=== PATIENT | female | born 1950 | race American Indian/Alaskan Native ===

== ENCOUNTER 2016-08-14 20:01 | Observation (INO) | payer BC, MEDICARE ==
[2016-08-14 20:01] VITALS: BMI 51.0
[2016-08-14] MEDS ORDERED: Sodium Chloride 0.9% 1,000 ML IV ONE (20:24)
--- NOTE | 2016-08-14 20:25 | C.PDOC ---
History Of Present Illness A 65 y/o female c/o left sided chest pain that radiated to the left upper extremity for 1 week. Pt notes that she feels better straightening her left shoulder. Pt reports Hx of injuring his lower back after a mechanical fall that occurred a few weeks prior and c/o lower back pain. Pt denies fever, chills, nausea, vomiting, SOB, palpitations, light headedness, or any other complaints. Time Seen by Provider: 08/14/16 20:18 Chief Complaint (Nursing): Chest Pain History Per: Patient History/Exam Limitations: no limitations Onset/Duration Of Symptoms: Days Current Symptoms Are (Timing): Still Present Severity: Mild Recent travel outside of the [place]: No Additional History Per: Patient Past Medical History Reviewed: Historical Data, Nursing Documentation, Vital Signs Vital Signs: Last Vital Signs Temp 99.2 F 08/14/16 20:03 Pulse 64 08/14/16 21:54 Resp 17 08/14/16 21:54 BP 162/67 H 08/14/16 21:54 Pulse Ox 95 08/14/16 22:20 - Medical History PMH: Arthritis, CAD, Depression, Diabetes, HTN Family History: States: Unknown Family Hx - Social History Hx Tobacco Use: No Hx Alcohol Use: No Hx Substance Use: No - Immunization History Hx Tetanus Toxoid Vaccination: No Hx Influenza Vaccination: No Hx Pneumococcal Vaccination: No Review Of Systems Except As Marked, All Systems Reviewed And Found Negative. Constitutional: Negative for: Fever, Chills Cardiovascular: Positive for: Chest Pain. Negative for: Light Headedness Respiratory: Negative for: Shortness of Breath Gastrointestinal: Negative for: Nausea, Vomiting Musculoskeletal: Positive for: Shoulder Pain (left, radiation), Back Pain (lower ) Physical Exam - Physical Exam Appears: Non-toxic, No Acute Distress Skin: Warm, Dry Head: Atraumatic, Normacephalic Eye(s): bilateral: Normal Inspection Neck: Supple Chest: No Deformity, Tenderness (Left anterior lateral chest wall) Cardiovascular: Rhythm Regular, No Murmur Respiratory: Normal Breath Sounds, No Accessory Muscle Use, No Rales, No Rhonchi , No Wheezing Gastrointestinal/Abdominal: Soft, No Tenderness Back: No CVA Tenderness, Vertebral Tenderness (Mild lumbar sacral tenderness), No Decreased ROM Extremity: Normal ROM, No Pedal Edema, No Deformity, No Swelling Pulses: Left Dorsalis Pedis: Normal, Right Dorsalis Pedis: Normal Neurological/Psych: Oriented x3, Normal Speech, Normal Motor, Normal Sensation, Other (No focal deficit) Gait: Steady ED Course And Treatment - Laboratory Results Result Diagrams: 08/14/16 20:46 08/14/16 21:15 ECG: Interpreted By Me, Viewed By Me ECG Rhythm: Sinus Rhythm ECG Interpretation: No Acute Changes Interpretation Of ECG: NSR, pssible LAE, borderlione tracings Rate From EC O2 Sat by Pulse Oximetry: 95 (RA) Pulse Ox Interpretation: Normal Medical Decision Making Medical Decision Making: Impression: 65 y/o female c/o left sided chest wall pain for a week plans: -EKG -Blood labs -CXR -IV fluids -Reassess Disposition Discussed With DrBeltran: Lei Ceja Doctor Will See Patient In The: Hospital Counseled Patient/Family Regarding: Diagnosis - Disposition Disposition: HOSPITALIZED Disposition Time: 22:16 Condition: STABLE - POA Present On Arrival: None - Clinical Impression Clinical Impression: Diabetes mellitus, Chest pain, Hypertension - Scribe Statement The provider has reviewed the documentation as recorded by the Scribe Deisy garces All medical record entries made by the Scribe were at my direction and personally dictated by me. I have reviewed the chart and agree that the record accurately reflects my personal performance of the history, physical exam, medical decision making, and the department course for this patient. I have also personally directed, reviewed, and agree with the discharge instructions and disposition.
[2016-08-14] MEDS ORDERED: Sodium Chloride 0.9% 1,000 ML ONE (20:43)
[2016-08-14 20:54] LABS: BASO # 0.1 K/uL (0.0-0.2); BASO % 0.8 % (0.0-2.0); EOS # 0.2 K/uL (0.0-0.7); EOS % 2.2 % (0.0-4.0); HEMATOCRIT 42.6 % (34.0-47.0); LYMPH # 2.7 K/uL (1.0-4.3); LYMPH % 34.8 % (20.0-40.0); MEAN CELL VOLUME 86.1 fL (81.0-99.0); MEAN CORPUSCULAR HGB CONC 32.6 g/dL (33.0-37.0); MEAN PLATELET VOLUME 9.3 fL (7.2-11.7); MONO # 0.7 K/uL (0.0-0.8); MONO % 9.3 % (0.0-10.0); NRBC % 0.1 % (0.0-2.0); RED CELL DISTRIBUTION WIDTH 14.6 % (11.5-14.5); WHITE BLOOD COUNT 7.8 K/uL (4.8-10.8)
[2016-08-14] MEDS ORDERED: Naproxen 550 mg Tab PO STA (21:15)
[2016-08-14] MEDS ORDERED: Naproxen 550 mg Tab PO ONE ×2 (21:18→21:40)
[2016-08-14 21:26] LABS: CHLORIDE 105 mmol/L (98-107)
[2016-08-14 21:27] LABS: POTASSIUM 3.9 mmol/L (3.6-5.2); SODIUM 137 mmol/L (132-148)
[2016-08-14 21:30] LABS: ALKALINE PHOSPHATASE 95 U/L (38-126); ALT/SGPT 21 U/L (9-52); AST/SGOT 19 U/L (14-36); BILIRUBIN,TOTAL 0.6 mg/dL (0.2-1.3); BLOOD UREA NITROGEN 12 mg/dL (7-17); CARBON DIOXIDE 23 mmol/L (22-30); GFR AFRICAN-AMERICAN > 60; GLUCOSE,RANDOM 267 mg/dL (65-105); TOTAL PROTEIN 6.7 g/dL (6.3-8.3)
[2016-08-14] MEDS ORDERED: Sodium Chloride 0.9% 500 ML IV ONE ×2 (21:36→21:40)
[2016-08-14] MEDS ORDERED: (Novolin R) Insulin Human Regular 100 units/ml vial SC ONE (21:37)
[2016-08-14] MEDS ORDERED: (Novolin R) Insulin Human Regular 100 units/ml vial ONE (21:46)
[2016-08-14 22:00] LABS: RBC URINE 3 /hpf (0-3); URINE BACTERIA FEW (<OCC); URINE BILIRUBIN NEGATIVE (NEGATIVE); URINE BLOOD NEGATIVE (NEGATIVE); URINE COLOR Yellow (YELLOW); URINE GLUCOSE (UA) 3+ mg/dL (Normal); URINE KETONE NEGATIVE (NEGATIVE); URINE LEUKOCYTE ESTERASE NEG Leu/uL (Negative); URINE PROTEIN NEGATIVE (NEGATIVE); WBC URINE 1 /hpf (0-5)
[2016-08-14 22:21] LABS: INR 1.1
--- NOTE | 2016-08-14 22:21 | CP.PCM.HP ---
Addendum entered and electronically signed by Montse Coates 08/15/16 00:16: BP was 197/78--> 209/82 --> cozaar and HCTZ were given as patient did not take those meds at home today --> repeat BP was 206/82 --> stat IV hydralazine was given. Will f/u repeat BP Original Note: <Montse Coates - Last Filed: 08/14/16 23:20> History of Present Illness - History of Present Illness History of Present Illness: CC: arm pain, chest pain, and back pain for 1 week HPI: 65 year old female PMHx of HTN, DM2, spinal stenosis, and morbid obesity presents with complaints of left arm pain, chest pain, and back pain for 1 week. Patient reports the left arm pain started first and was a constant 8/10 that felt like a tingling sensation like she had "poor circulation." She reported that if she lay her arm out straight the tingling would stop but if she folded her arm she would feel it again. The patient's chest pain started the next day after her arm pain and she reported it was on the left side of her chest and would feel like a dull thud and pressure like. She reported it was across her entire chest but mostly on the left side. She rated the pain 6/10 and denied any alleviating/exacerbating factors. Patient stated the pain began when she was sleeping and she said that when she pressed down on her chest it would hurt. Patient also reported some back pain that felt like she was having a cold. She said the last time she had bronchitis she had similar back pain. It was dull in nature and would be at the middle of her back and then radiate up and down her entire back. Patient reported the pain was a 6/10. She also showed me reports from an MRI i n2014 that showed "L3-L4, L4-L5, L5-S1 bulging annuli with annulus tear; foraminal narrowing at L5-S1 and facet hypertrophy. She denied any recent trauma. Patient's last travel was to [place] in June and she denied any recent sick contacts. Patient admits to weakness, headache, dizziness, lightheadness, dysphagia, sore tongue, chest pain, dry cough, post nasal drip, nausea, urinary frequency, pedal edema, pain in legs b/l, back pain , perirectal pruritus, external hemorrhoids. She deneis fever, chills, diaphoresis, change in vision/hearing, sore throat, palpitations, SOB, abd pain , vomiting, hematemesis, bowel complaints, dysuria, rash, easy bruising, easy bleeding. Patient uses a cane to walk. PMD: Dr. 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] PreviousHospitalization: at in February 2016 for abdominal pain ROS: admits to weakness, headache, dizziness, lightheadness, dysphagia, sore tongue, chest pain, dry cough, post nasal drip, nausea, urinary frequency, pedal edema, pain in legs b/l, back pain, perirectal pruritus, external hemorrhoid Deneis fever, chills, diaphoresis, change in vision/hearing, sore throat, palpitations, SOB, abd pain, vomiting, hematemesis, bowel complaints, dysuria, rash, easy bruising, easy bleeding ER Course: EKG showed no acute ST elevations, first ALEXUS was negative, Labs ordered, CXR ordered, IV fluids Present on Admission - Present on Admission Any Indicators Present on Admission: No Review of Systems - Constitutional Constitutional: As Per HPI, Headache. absent: Chills, Fever, Weight Gain, Weight Loss - EENT Eyes: As Per HPI. absent: Change in Vision Ears: As Per HPI. absent: Tinnitus Nose/Mouth/Throat: As Per HPI, Post Nasal Drip, Tongue Swelling. absent: Sore Throat - Cardiovascular Cardiovascular: As Per HPI, Chest Pain, Dyspnea on Exertion, Pedal Edema. absent: Dyspnea, Palpitations - Respiratory Respiratory: As Per HPI, Cough (nonproductive), Dyspnea on Exertion. absent: Dyspnea, Wheezing, Chest Congestion - Gastrointestinal Gastrointestinal: As Per HPI, Nausea. absent: Abdominal Pain, Constipation, Diarrhea, Vomiting - Genitourinary Genitourinary: As Per HPI, Urinary Frequency. absent: Dysuria, Hematuria, Pyuria, Nocturia - Musculoskeletal Musculoskeletal: As Per HPI, Back Pain, Tingling (left arm). absent: Myalgias, Numbness - Integumentary Integumentary: As Per HPI, Pruritus (perirectal), Rash (perirectal) - Neurological Neurological: As Per HPI, Dizziness, Headaches, Tingling (left arm), Weakness. absent: Abnormal Movements, Numbness, Memory Loss - Psychiatric Psychiatric: As Per HPI. absent: Anxiety - Endocrine Endocrine: As Per HPI, Polyuria. absent: Palpitations, Polydipsia, Polyphagia - Hematologic/Lymphatic Hematologic: As Per HPI. absent: Easy Bleeding, Easy Bruising, Lymphadenopathy Past Patient History - Past Social History Smoking Status: Never Smoked - CARDIAC Hx Hypertension: Yes - ENDOCRINE/METABOLIC Hx Diabetes Mellitus Type 2: Yes - MUSCULOSKELETAL/RHEUMATOLOGICAL Hx Arthritis: Yes - PSYCHIATRIC Hx Depression: Yes Hx Substance Use: No - ANESTHESIA Hx Anesthesia: No Hx Anesthesia Reactions: No Hx Malignant Hyperthermia: No Meds Allergies/Adverse Reactions: Allergies Allergy/AdvReac Type Severity Reaction Status Date / Time ampicillin Allergy Verified 08/14/16 20:19 gentian mackenzie AdvReac Verified 08/14/16 20:19 proflavine AdvReac Verified 08/14/16 20:19 BRILLIANT GREEN AdvReac Uncoded 02/16/16 17:30 [FROM TRIPLE DYE] Physical Exam - Constitutional Appears: Non-toxic, Chronically Ill (morbidly obese) - Head Exam Head Exam: ATRAUMATIC, NORMAL INSPECTION, NORMOCEPHALIC - Eye Exam Eye Exam: EOMI, Normal appearance, Scleral icterus. absent: Conjunctival injection, PERRL Pupil Exam: NORMAL ACCOMODATION - ENT Exam ENT Exam: Mucous Membranes Moist - Neck Exam Neck exam: Positive for: Full Rom, Thyromegaly. Negative for: Lymphadenopathy, Tenderness - Respiratory Exam Respiratory Exam: Decreased Breath Sounds (secondary to body habitus), NORMAL BREATHING PATTERN. absent: Accessory Muscle Use, Rales, Rhonchi, Wheezes, Respiratory Distress - Cardiovascular Exam Cardiovascular Exam: REGULAR RHYTHM, RRR, +S1, +S2. absent: Systolic Murmur - GI/Abdominal Exam GI & Abdominal Exam: Distended (secondary to body habitus), Normal Bowel Sounds , Soft. absent: Firm, Guarding, Rigid, Tenderness - Rectal Exam Rectal Exam: Deferred - Exam External exam: NORMAL EXTERNAL EXAM. absent: Ecchymosis, Erythema, Lacerations , Lesions, Swelling - Extremities Exam Extremities exam: Positive for: normal capillary refill, normal inspection, pedal edema (nonpitting), pedal pulses present - Back Exam Back exam: NORMAL INSPECTION. absent: paraspinal tenderness, rash noted, tenderness, vertebral tenderness - Neurological Exam Neurological exam: Alert, Oriented x3 - Psychiatric Exam Psychiatric exam: Normal Affect, Normal Mood - Skin Skin Exam: Dry, Intact, Normal Color, Warm Results - Vital Signs Recent Vital Signs: Last Vital Signs Temp 99.2 F 08/14/16 20:03 Pulse 64 08/14/16 21:54 Resp 17 08/14/16 21:54 BP 162/67 H 08/14/16 21:54 Pulse Ox 95 08/14/16 22:19 - Labs Result Diagrams: 08/14/16 20:46 08/14/16 21:15 Labs: Laboratory Results - last 24 hr 08/14/16 08/14/16 08/14/16 20:26 20:46 21:15 WBC 7.8 RBC 4.95 Hgb 13.9 Hct 42.6 MCV 86.1 MCH 28.0 MCHC 32.6 L RDW 14.6 H Plt Count 243 MPV 9.3 Neut % (Auto) 52.9 Lymph % (Auto) 34.8 [place] % (Auto) 9.3 Eos % (Auto) 2.2 Baso % (Auto) 0.8 Neut # 4.2 Lymph # 2.7 [place] # 0.7 Eos # 0.2 Baso # 0.1 Sodium 137 Potassium 3.9 Chloride 105 Carbon Dioxide 23 Anion Gap 13 BUN 12 Creatinine 0.8 Est GFR ( Amer) > 60 Est GFR (Non-Af Amer) > 60 POC Glucose (mg/dL) 312 H Random Glucose 267 H Calcium 9.0 Total Bilirubin 0.6 AST 19 ALT 21 Alkaline Phosphatase 95 Troponin I < 0.0120 Total Protein 6.7 Albumin 3.4 L Globulin 3.4 Albumin/Globulin Ratio 1.0 Urine Color Urine Clarity Urine pH Ur Specific [place] Urine Protein Urine Glucose (UA) Urine Ketones Urine Blood Urine Nitrate Urine Bilirubin Urine Urobilinogen Ur Leukocyte Esterase Urine WBC (Auto) Urine RBC (Auto) Ur Squamous Epith Cells Urine Bacteria 08/14/16 21:53 WBC RBC Hgb Hct MCV MCH MCHC RDW Plt Count MPV Neut % (Auto) Lymph % (Auto) [place] % (Auto) Eos % (Auto) Baso % (Auto) Neut # Lymph # [place] # Eos # Baso # Sodium Potassium Chloride Carbon Dioxide Anion Gap BUN Creatinine Est GFR ( Amer) Est GFR (Non-Af Amer) POC Glucose (mg/dL) Random Glucose Calcium Total Bilirubin AST ALT Alkaline Phosphatase Troponin I Total Protein Albumin Globulin Albumin/Globulin Ratio Urine Color Yellow Urine Clarity Hazy Urine pH 5.0 Ur Specific [place] 1.022 Urine Protein Negative Urine Glucose (UA) 3+ H Urine Ketones Negative Urine Blood Negative Urine Nitrate Negative Urine Bilirubin Negative Urine Urobilinogen 4.0 H Ur Leukocyte Esterase Neg Urine WBC (Auto) 1 Urine RBC (Auto) 3 Ur Squamous Epith Cells 9 H Urine Bacteria Few H Assessment & Plan - Assessment and Plan (Free Text) Assessment: 65 year old female PMHx of HTN, DM2, spinal stenosis, and morbid obesity presents with complaints of left arm pain, chest pain, and back pain for 1 week Plan: Chest pain - r/o ACS -First ALEXUS negative and EKG was NSR with no acute ST elevations -f/u ALEXUS x 2 and EKG x 2 -ASA 81mg po daily -Crestor 10mg po daily -f/u AM labs -f/u Echo -HEART score of 3 [low 0.9-1.7% risk of adverse cardiac event. Risk of MACE ( Major Adverse Cardiac Events) is 0.9-1.7%] -Cardiology consult: Dr Sheppard Morbid Obesity -BMI 50.9 -Nutrition/Exhaust Machine Operator consult -Heart healthy diet with moderate consistent carb -Recommend outpatient diet control and exercise Perirectal pruritus -Topical ointment BID Hx of HTN -ASA 81mg po daily -Crestor 10mg po hs -Diltiazem 60mg po bid -HCTZ 12.5mg po daily -Cozaar 100mg po daily -Lopressor 25mg po bid -Lovaza 1gm po bid -f/u thyroid studies, lipid panel Hx of DM2 -f/u HgbA1c -RISS medium -Accucheck Hx of spinal stenosis -f/u lumbar x-ray PPX -Pepcid 20mg po bid -Heparin 5000u sc q8 -SCDs -Heart healthy moderate consistent carb diet -PT/OT -Exhaust Machine Operator Plan discussed with Dr. Brenna Coates PGY1 <Lei Ceja - Last Filed: 08/15/16 06:21> Results - Vital Signs Recent Vital Signs: Last Vital Signs Temp 98.6 F 08/15/16 01:49 Pulse 70 08/15/16 01:49 Resp 20 08/15/16 01:49 BP 175/85 H 08/15/16 01:49 Pulse Ox 96 08/15/16 01:49 - Labs Result Diagrams: 08/14/16 20:46 08/14/16 21:15 Labs: Laboratory Results - last 24 hr 08/15/16 01:55 Total Creatine Kinase 58 CK-MB (Mass) 0.46 Troponin I, Quant < 0.0120 Assessment & Plan - Date & Time Date: 08/15/16 (I have seen and examined the patient. I agree with the findings and plan of care as documented by Dr. Coates. Patient with chest pain. Also with morbid obesity, diabetes, and hypertension. ROMIx3 with EKG. Aspirin and Statin. Continue home meds. Consult to Cardio. Consult to nutrition. NISS and accuchecks. 2D Echo. Monitor for acute changes.) Time: 06:19 Attending/Attestation - Attestation I have personally seen and examined this patient.: Yes I have fully participated in the care of the patient.: Yes I have reviewed all pertinent clinical information: Yes
[2016-08-15] MEDS ORDERED: (Novolin N) Insulin Human Isophane (NPH) 100 u/ml 10 ml vial SC SCH (07:30)
[2016-08-15 07:38] VITALS: O2SAT 95
[2016-08-15 08:00] LABS: BASO # 0.1 K/uL (0.0-0.2); BASO % 0.9 % (0.0-2.0); EOS # 0.2 K/uL (0.0-0.7); EOS % 2.3 % (0.0-4.0); HEMATOCRIT 41.5 % (34.0-47.0); LYMPH # 2.4 K/uL (1.0-4.3); LYMPH % 33.8 % (20.0-40.0); MEAN CELL VOLUME 85.9 fL (81.0-99.0); MEAN CORPUSCULAR HEMOGLOBIN 28.5 pg (27.0-31.0); MEAN CORPUSCULAR HGB CONC 33.2 g/dL (33.0-37.0); MEAN PLATELET VOLUME 9.9 fL (7.2-11.7); MONO # 0.4 K/uL (0.0-0.8); MONO % 5.7 % (0.0-10.0); NRBC % 0.1 % (0.0-2.0); RED CELL DISTRIBUTION WIDTH 14.5 % (11.5-14.5); WHITE BLOOD COUNT 7.1 K/uL (4.8-10.8)
[2016-08-15 08:07] LABS: CHLORIDE 102 mmol/L (98-107); POTASSIUM 3.6 mmol/L (3.6-5.2); SODIUM 137 mmol/L (132-148)
[2016-08-15 08:09] LABS: AST/SGOT 19 U/L (14-36); BILIRUBIN,TOTAL 0.8 mg/dL (0.2-1.3); CARBON DIOXIDE 23 mmol/L (22-30); CHOLESTEROL 166 mg/dL (0-199); GFR AFRICAN-AMERICAN > 60; TOTAL PROTEIN 6.9 g/dL (6.3-8.3)
[2016-08-15 08:10] LABS: ALKALINE PHOSPHATASE 108 U/L (38-126); ALT/SGPT 21 U/L (9-52); BLOOD UREA NITROGEN 13 mg/dL (7-17); CALCIUM 9.5 mg/dl (8.6-10.4); GLUCOSE,RANDOM 321 mg/dL (65-105); MAGNESIUM 1.6 mg/dL (1.6-2.3); PHOSPHOROUS 3.5 mg/dL (2.5-4.5)
[2016-08-15 08:49] LABS: THYROID STIMULATING HORMONE 2.91 mIU/L (0.46-4.68)
--- NOTE | 2016-08-15 09:04 | RAD ---
PROCEDURE: CHEST RADIOGRAPH, 1 VIEW HISTORY: chest pain COMPARISON: None available. FINDINGS: LUNGS: Mild venous congestion. PLEURA: No pneumothorax or pleural fluid seen. CARDIOVASCULAR: Cardiomegaly. OSSEOUS STRUCTURES: Question deformity of the left proximal humerus which is only partially imaged. Correlation with humerus x-ray may be helpful indicated. VISUALIZED UPPER ABDOMEN: Normal. OTHER FINDINGS: None. IMPRESSION: Mild venous congestion.
--- NOTE | 2016-08-15 10:08 | CP.PCM.PN ---
Subjective - Date & Time of Evaluation Date of Evaluation: 08/15/16 Time of Evaluation: 09:59 - Subjective Subjective: PGY-[address] Garcia Pt seen and examined at bedside. No acute events overnight. Pt denies reoccurrence of chest pain that led to admission. She states she sometimes gets numbness in her left arms, most commonly while sleeping with her arm flexed. Pt also complaining of pruritic "rash" in skin folds, and was given topical antifungal medication. She denies chest pain, shortness of breath, abdominal pain, N/v/d/c. Objective - Vital Signs/Intake and Output Vital Signs (last 24 hours): Temp Pulse Resp BP Pulse Ox 98.0 F 79 20 131/73 95 08/15/16 07:35 08/15/16 07:35 08/15/16 07:35 08/15/16 07:35 08/15/16 07:35 - Medications Medications: Current Medications Acetaminophen (Tylenol 325mg Tab) 650 mg PO Q6 PRN PRN Reason: Headache Last Admin: 08/15/16 06:04 Dose: 650 mg Aspirin (Aspirin Chewable) 81 mg PO DAILY [facility] Diltiazem HCl (Cardizem Sr) 60 mg PO BID [facility] Famotidine (Pepcid) 20 mg PO BID [facility] Heparin Sodium (Porcine) (Heparin) 5,000 units SC Q8 [facility] Last Admin: 08/15/16 06:09 Dose: 5,000 units Hydralazine HCl (Apresoline) 10 mg IVP Q6H PRN PRN Reason: Systolic Blood Pressure Last Admin: 08/15/16 01:53 Dose: 10 mg Hydrochlorothiazide (Microzide) 12.5 mg PO DAILY [facility] Last Admin: 08/15/16 00:00 Dose: 12.5 mg Insulin Human NPH (Novolin N) 0 unit SC ACHS [facility] PRN Reason: Protocol Last Admin: 08/15/16 08:49 Dose: 6 unit Losartan Potassium (Cozaar) 100 mg PO DAILY [facility] Last Admin: 08/14/16 23:35 Dose: 100 mg Metoprolol Tartrate (Lopressor) 25 mg PO BID [facility] Multi-Ingredient Ointment (Prep-Hem) 0 ea TOP BID [facility] [id number] Ethyl Esters (Lovaza) 1 gm PO BID [facility] Rosuvastatin Calcium (Crestor) 10 mg PO HS EVE - Labs Labs: 08/15/16 07:44 08/15/16 07:44 PT 12.6 SECONDS (9.7-12.2) H 08/14/16 22:10 INR 1.1 08/14/16 22:10 APTT 27 SECONDS (21-34) 08/15/16 07:44 - Constitutional Appears: Non-toxic, No Acute Distress, Chronically Ill, Other (large body habitus noted) - Head Exam Head Exam: ATRAUMATIC, NORMOCEPHALIC - Eye Exam Eye Exam: EOMI, Normal appearance. absent: Scleral icterus - ENT Exam ENT Exam: Mucous Membranes Moist - Neck Exam Neck Exam: Full ROM - Respiratory Exam Respiratory Exam: Decreased Breath Sounds (body habitus), NORMAL BREATHING PATTERN - Cardiovascular Exam Cardiovascular Exam: REGULAR RHYTHM, +S1, +S2 - GI/Abdominal Exam GI & Abdominal Exam: Soft, Normal Bowel Sounds. absent: Tenderness - Extremities Exam Extremities Exam: Normal Inspection, Pedal Edema. absent: Tenderness - Neurological Exam Neurological Exam: Alert, Awake, Oriented x3 - Skin Skin Exam: Dry, Normal Color, Warm Assessment and Plan - Assessment and Plan (Free Text) Plan: Chest pain - r/o ACS Admit to tele -ALEXUS negative x 3; EKG: NSR with no acute ST elevations -ASA 81mg po daily -Crestor 10mg po daily -Echo (02/18): LV fxn normal. EF 60%. Mild tricupsid, pulmonic valve regurgitation (see full report) -HEART score of 3 [low 0.9-1.7% risk of adverse cardiac event. Risk of MACE ( Major Adverse Cardiac Events) is 0.9-1.7%] -Cardiology consult: Dr Sheppard - recommends stress test/ECHO as outpatient Left Upper Extremity Paresthesia Positional - flexion of UE R/O radiculopathy vs Vascular - f/u C-spine XR - f/u arterial doppler UE Morbid Obesity -BMI 50.9 -Nutrition/Clinical Education Coordinator consult -Heart healthy diet with moderate consistent carb -Recommend outpatient diet control and exercise Intertrigenous/Pannicular Rash (Yeast Infection) Keiko in skin folds for "10 months" Clotrimazole 1%, topically BID Perirectal pruritus -Topical ointment BID Hx of HTN Elevated since presentation -Diltiazem 60mg po bid -HCTZ increased 25mg po daily -Cozaar 100mg po daily -Lopressor 25mg po bid -Lovaza 1gm po bid -thyroid studies, lipid panel: WNL Hx of DM2 -HgbA1c: 12.4, uncontrolled; pt has not had meds for two months -RISS medium -Accucheck Continue KEYANA, BB, Statin Hx of lumbar spinal stenosis Pt reports -Lumbar x-ray (08/15/16): No acute fracture. Mild DDD worse at L4-5, L5-S1 (see full report) PPX -Pepcid 20mg po bid -Heparin 5000u sc q8 -SCDs -Heart healthy moderate consistent carb diet -PT/OT -Clinical Education Coordinator Plan discussed with Dr. Radha Alfred PGY1
--- NOTE | 2016-08-15 10:35 | RAD ---
HISTORY: left sided chest pain COMPARISON: No prior. TECHNIQUE: Chest PA and lateral FINDINGS: LUNGS: Mild venous congestion. Right hilar prominence. PLEURA: No significant pleural effusion identified. No pneumothorax apparent. CARDIOVASCULAR: Normal. OSSEOUS STRUCTURES: No significant abnormalities. VISUALIZED UPPER ABDOMEN: Normal. OTHER FINDINGS: None. IMPRESSION: Mild venous congestion. Right hilar prominence.
[2016-08-15] MEDS: Omega-3-Acid Ethyl Esters 1 GM Cap PO SCH ×2 (10:58→17:26)
[2016-08-15] MEDS: diltiaZEM 60 mg ER Cap PO SCH ×2 (10:58→17:26)
[2016-08-15] MEDS: Hemorrohoidal Ointment (2 oz) TOP SCH ×2 (11:02→17:29)
--- NOTE | 2016-08-15 12:52 | CP.PCM.CON ---
History of Present Illness - History of Present Illness History of Present Illness: 65-year-old lady with history of obesity, type 2 diabetes, hypertension and dyslipidemia, was admitted with 2 days history of left arm pain and numbness followed by chest pain. The chest pain is reproducible tenderness no EKG changes and the cardiac enzymes are so far negative. The pain had improved no myocardial infarction and due to the reproducibility of the pain it's unlikely dissection of the aorta or pulmonary embolus. She would need an echocardiogram and stress test that can be done as outpatient. Review of Systems - Review of Systems Systems not reviewed;Unavailable: Acuity of Condition - Constitutional Constitutional: absent: Anorexia, Weakness - EENT Eyes: absent: Discharge Ears: absent: Decreased Hearing, Dizziness Nose/Mouth/Throat: absent: Epistaxis - Cardiovascular Cardiovascular: Chest Pain, Chest Pain at Rest. absent: Acrocyanosis, Diaphoresis, Palpitations, Syncope - Respiratory Respiratory: absent: Cough, Dyspnea, Hemoptysis - Gastrointestinal Gastrointestinal: absent: Abdominal Pain, Diarrhea, Hematochezia, Vomiting - Genitourinary Genitourinary: absent: Change in Urinary Stream Past Patient History - Past Medical History & Family History Past Medical History?: Yes - Past Social History Smoking Status: Former Smoker - CARDIAC Hx Cardiac Disorders: Yes Hx Hypertension: Yes - PULMONARY Hx Respiratory Disorders: No - NEUROLOGICAL Hx Neurological Disorder: No - HEENT Hx HEENT Problems: No - RENAL Hx Chronic Kidney Disease: No - ENDOCRINE/METABOLIC Hx Endocrine Disorders: Yes Hx Diabetes Mellitus Type 2: Yes - HEMATOLOGICAL/ONCOLOGICAL Hx Blood Disorders: No - INTEGUMENTARY Hx Dermatological Problems: No - MUSCULOSKELETAL/RHEUMATOLOGICAL Hx Musculoskeletal Disorders: Yes Hx Arthritis: Yes Hx Falls: No - GASTROINTESTINAL Hx Gastrointestinal Disorders: No - GENITOURINARY/GYNECOLOGICAL Hx Genitourinary Disorders: No - PSYCHIATRIC Hx Psychophysiologic Disorder: Yes Hx Depression: Yes Hx Substance Use: No - SURGICAL HISTORY Hx Surgeries: No - ANESTHESIA Hx Anesthesia: No Hx Anesthesia Reactions: No Hx Malignant Hyperthermia: No Meds Allergies/Adverse Reactions: Allergies Allergy/AdvReac Type Severity Reaction Status Date / Time ampicillin Allergy Verified 08/14/16 20:19 gentian thea AdvReac Verified 08/14/16 20:19 proflavine AdvReac Verified 08/14/16 20:19 BRILLIANT GREEN AdvReac Uncoded 02/16/16 17:30 [FROM TRIPLE DYE] - Medications Medications: Current Medications Acetaminophen (Tylenol 325mg Tab) 650 mg PO Q6 PRN PRN Reason: Headache Last Admin: 08/15/16 06:04 Dose: 650 mg Aspirin (Aspirin Chewable) 81 mg PO DAILY [facility] Last Admin: 08/15/16 10:58 Dose: 81 mg Clotrimazole (Lotrimin 1%) 0 gm TOP BID [facility] Diltiazem HCl (Cardizem Sr) 60 mg PO BID [facility] Last Admin: 08/15/16 10:58 Dose: 60 mg Famotidine (Pepcid) 20 mg PO BID [facility] Last Admin: 08/15/16 10:58 Dose: 20 mg Heparin Sodium (Porcine) (Heparin) 5,000 units SC Q8 [facility] Last Admin: 08/15/16 06:09 Dose: 5,000 units Hydralazine HCl (Apresoline) 10 mg IVP Q6H PRN PRN Reason: Systolic Blood Pressure Last Admin: 08/15/16 01:53 Dose: 10 mg Hydrochlorothiazide (Microzide) 12.5 mg PO DAILY [facility] Last Admin: 08/15/16 00:00 Dose: 12.5 mg Insulin Human NPH (Novolin N) 0 unit SC ACHS [facility] PRN Reason: Protocol Losartan Potassium (Cozaar) 100 mg PO DAILY [facility] Last Admin: 08/14/16 23:35 Dose: 100 mg Metoprolol Tartrate (Lopressor) 25 mg PO BID [facility] Last Admin: 08/15/16 11:00 Dose: 25 mg Multi-Ingredient Ointment (Prep-Hem) 0 ea TOP BID [facility] Last Admin: 08/15/16 11:02 Dose: 1 appl Ukzns-7-Onse Ethyl Esters (Lovaza) 1 gm PO BID [facility] Last Admin: 08/15/16 10:58 Dose: 1 gm Rosuvastatin Calcium (Crestor) 10 mg PO [facility] Physical Exam - Constitutional Appears: Non-toxic - Head Exam Head Exam: ATRAUMATIC - Eye Exam Eye Exam: EOMI - ENT Exam ENT Exam: Mucous Membranes Moist - Neck Exam Neck exam: Negative for: Lymphadenopathy, Thyromegaly - Respiratory Exam Respiratory Exam: Clear to Auscultation Bilateral. absent: Rales - Cardiovascular Exam Cardiovascular Exam: REGULAR RHYTHM, Systolic Murmur - GI/Abdominal Exam GI & Abdominal Exam: Normal Bowel Sounds. absent: Organomegaly - Rectal Exam Rectal Exam: Deferred - Extremities Exam Extremities exam: Positive for: normal capillary refill. Negative for: calf tenderness - Neurological Exam Neurological exam: Alert, Oriented x3 - Psychiatric Exam Psychiatric exam: Normal Mood - Skin Skin Exam: Dry Results - Vital Signs Recent Vital Signs: Last Vital Signs Temp 98.0 F 08/15/16 07:35 Pulse 72 08/15/16 08:00 Resp 20 08/15/16 07:35 BP 176/92 H 08/15/16 11:00 Pulse Ox 95 08/15/16 07:35 - Labs Result Diagrams: 08/15/16 07:44 08/15/16 07:44 Labs: Laboratory Results - last 24 hr 08/15/16 08/15/16 08/15/16 01:55 05:52 07:44 WBC 7.1 RBC 4.83 Hgb 13.8 Hct 41.5 MCV 85.9 MCH 28.5 MCHC 33.2 RDW 14.5 Plt Count 235 MPV 9.9 Neut % (Auto) 57.3 Lymph % (Auto) 33.8 [place] % (Auto) 5.7 Eos % (Auto) 2.3 Baso % (Auto) 0.9 Neut # 4.1 Lymph # 2.4 [place] # 0.4 Eos # 0.2 Baso # 0.1 APTT Sodium Potassium Chloride Carbon Dioxide Anion Gap BUN Creatinine Est GFR ( Amer) Est GFR (Non-Af Amer) POC Glucose (mg/dL) 330 H Random Glucose Hemoglobin A1c Calcium Phosphorus Magnesium Total Bilirubin AST ALT Alkaline Phosphatase Total Creatine Kinase 58 CK-MB (Mass) 0.46 Troponin I, Quant < 0.0120 Total Protein Albumin Globulin Albumin/Globulin Ratio Triglycerides Cholesterol LDL Cholesterol Direct HDL Cholesterol Free T4 TSH 3rd Generation 08/15/16 08/15/16 08/15/16 07:44 07:44 07:44 WBC RBC Hgb Hct MCV MCH MCHC RDW Plt Count MPV Neut % (Auto) Lymph % (Auto) [place] % (Auto) Eos % (Auto) Baso % (Auto) Neut # Lymph # [place] # Eos # Baso # APTT Sodium 137 Potassium 3.6 Chloride 102 Carbon Dioxide 23 Anion Gap 15 BUN 13 Creatinine 0.8 Est GFR ( Amer) > 60 Est GFR (Non-Af Amer) > 60 POC Glucose (mg/dL) Random Glucose 321 H Hemoglobin A1c 12.4 H Calcium 9.5 Phosphorus 3.5 Magnesium 1.6 Total Bilirubin 0.8 AST 19 ALT 21 Alkaline Phosphatase 108 Total Creatine Kinase CK-MB (Mass) Troponin I, Quant Total Protein 6.9 Albumin 3.5 Globulin 3.4 Albumin/Globulin Ratio 1.0 Triglycerides 104 D Cholesterol 166 LDL Cholesterol Direct 116 HDL Cholesterol 33 Free T4 1.52 TSH 3rd Generation 2.91 08/15/16 08/15/16 08/15/16 07:44 08:17 12:11 WBC RBC Hgb Hct MCV MCH MCHC RDW Plt Count MPV Neut % (Auto) Lymph % (Auto) [place] % (Auto) Eos % (Auto) Baso % (Auto) Neut # Lymph # [place] # Eos # Baso # APTT 27 Sodium Potassium Chloride Carbon Dioxide Anion Gap BUN Creatinine Est GFR ( Amer) Est GFR (Non-Af Amer) POC Glucose (mg/dL) 311 H Random Glucose Hemoglobin A1c Calcium Phosphorus Magnesium Total Bilirubin AST ALT Alkaline Phosphatase Total Creatine Kinase 57 CK-MB (Mass) 0.56 Troponin I, Quant < 0.0120 Total Protein Albumin Globulin Albumin/Globulin Ratio Triglycerides Cholesterol LDL Cholesterol Direct HDL Cholesterol Free T4 TSH 3rd Generation Assessment & Plan (1) Chest pain Status: Acute Comment: neg OR, unlikely PE or disection, EST as outpt (2) Diabetes mellitus Status: Chronic (3) Hypertension Status: Chronic
[2016-08-15] MEDS: (Novolin N) Insulin Human Isophane (NPH) 100 u/ml 10 ml vial SC SCH ×3 (13:17→21:32)
--- NOTE | 2016-08-15 13:25 | RAD ---
PROCEDURE: Radiographs of the Lumbar Spine. HISTORY: Pain, injury COMPARISON: No prior. FINDINGS: BONES: There is 4 mm degenerative anterior listhesis of L4 on L5. There is straightening of the lumbar spine with loss of normal lumbar lordosis. Vertebral alignment is normal. Vertebral height is maintained. There is diffuse bone demineralization. There is no acute fracture. DISC SPACES: There is mild multilevel degenerative disc disease with anterior spurring, reduced disc heights and multilevel facet arthropathy, worse at L4-5 and L5-S1. OTHER FINDINGS: There are atherosclerotic calcifications in the abdominal aorta. IMPRESSION: No acute fracture. Mild multilevel degenerative disc disease, worse at L4-5 and L5-S1.
[2016-08-15] MEDS: Clotrimazole 1% Cream 15 GM TUBE TOP SCH ×2 (14:20→17:28)
--- NOTE | 2016-08-15 17:44 | RAD ---
PROCEDURE: Cervical Spine Radiographs. HISTORY: Pain. No history of recent/ related trauma provided COMPARISON: None. FINDINGS: BONES: Reversal of the anatomic lordosis with kyphosis. No fracture. Dens Intact. DISC SPACES: Insert intervertebral disc spaces. Incidental finding(s): Non marginal osteophyte formation C5-6 SOFT TISSUES: Normal. No prevertebral soft tissue swelling. OTHER FINDINGS: None. IMPRESSION: No significant or acute findings to account for/ related to the clinical presentation.
--- NOTE | 2016-08-15 18:28 | CARD ---
APPROVED REPORT EKG Measurement Heart [id number] <Conclusion> Normal sinus rhythm Possible Left atrial enlargement Borderline ECG
[2016-08-15] MEDS ORDERED: (Lantus) Insulin Glargine, Recombinant SC SCH (22:00)
--- NOTE | 2016-08-16 06:56 | CP.PCM.PN ---
Subjective - Date & Time of Evaluation Date of Evaluation: 08/16/16 Time of Evaluation: 06:53 - Subjective Subjective: PGY-[address] Garcia's service: Pt seen and examined at bedside. No acute events overnight. Patient states that she slept good and had no acute complaints. Patient states the chest pain is gone and her numbness of the left arm has subsided since yesterday. Patient also states that her rash under skin folds is still itchy, but decreased since admission. She denied any chest pain, palpitations, sob, cough, n/v, d/c, or abdominal pain. Objective - Vital Signs/Intake and Output Vital Signs (last 24 hours): Temp Pulse Resp BP Pulse Ox 97.9 F 67 20 181/84 H 95 08/15/16 23:14 08/15/16 23:14 08/15/16 23:14 08/15/16 23:14 08/15/16 23:14 Intake and Output: 08/15/16 08/16/16 18:59 06:59 Intake Total 120 300 Balance 120 300 - Medications Medications: Current Medications Acetaminophen (Tylenol 325mg Tab) 650 mg PO Q6 PRN PRN Reason: Headache Last Admin: 08/15/16 06:04 Dose: 650 mg Aspirin (Aspirin Chewable) 81 mg PO DAILY [facility] Last Admin: 08/15/16 10:58 Dose: 81 mg Clotrimazole (Lotrimin 1%) 0 gm TOP BID [facility] Last Admin: 08/15/16 17:28 Dose: 1 applic Diltiazem HCl (Cardizem Sr) 60 mg PO BID [facility] Last Admin: 08/15/16 17:26 Dose: 60 mg Famotidine (Pepcid) 20 mg PO BID [facility] Last Admin: 08/15/16 17:26 Dose: 20 mg Heparin Sodium (Porcine) (Heparin) 5,000 units SC Q8 [facility] Last Admin: 08/16/16 05:59 Dose: 5,000 units Hydralazine HCl (Apresoline) 10 mg IVP Q6H PRN PRN Reason: Systolic Blood Pressure Last Admin: 08/15/16 01:53 Dose: 10 mg Hydrochlorothiazide (Hydrodiuril) 25 mg PO Q24H [facility] Insulin Glargine (Lantus) 10 unit SC HS [facility] Last Admin: 08/15/16 21:31 Dose: 10 u Insulin Human NPH (Novolin N) 0 unit SC ACHS [facility] PRN Reason: Protocol Last Admin: 08/15/16 21:32 Dose: Not Given Losartan Potassium (Cozaar) 100 mg PO DAILY [facility] Last Admin: 08/15/16 23:03 Dose: 100 mg Metoprolol Tartrate (Lopressor) 25 mg PO BID [facility] Last Admin: 08/15/16 17:25 Dose: 25 mg Multi-Ingredient Ointment (Prep-Hem) 0 ea TOP BID [facility] Last Admin: 08/15/16 17:29 Dose: 1 appl Ooxuc-0-Ftac Ethyl Esters (Lovaza) 1 gm PO BID [facility] Last Admin: 08/15/16 17:26 Dose: 1 gm Rosuvastatin Calcium (Crestor) 10 mg PO HS [facility] Last Admin: 08/15/16 21:30 Dose: 10 mg Sitagliptin Phosphate (Januvia) 50 mg PO DAILY [facility] Last Admin: 08/15/16 15:15 Dose: 50 mg - Labs Labs: 08/15/16 07:44 08/15/16 07:44 PT 12.6 SECONDS (9.7-12.2) H 08/14/16 22:10 INR 1.1 08/14/16 22:10 APTT 27 SECONDS (21-34) 08/15/16 07:44 - Additional Findings Additional findings: - Constitutional Appears: Non-toxic, No Acute Distress, Chronically Ill, Other (large body habitus noted) - Head Exam Head Exam: ATRAUMATIC, NORMOCEPHALIC - Eye Exam Eye Exam: EOMI, Normal appearance. absent: Scleral icterus - ENT Exam ENT Exam: Mucous Membranes Moist - Neck Exam Neck Exam: Full ROM - Respiratory Exam Respiratory Exam: Decreased Breath Sounds (body habitus), NORMAL BREATHING PATTERN - Cardiovascular Exam Cardiovascular Exam: REGULAR RHYTHM, +S1, +S2 - GI/Abdominal Exam GI & Abdominal Exam: Soft, Normal Bowel Sounds. absent: Tenderness - Extremities Exam Extremities Exam: Normal Inspection, Pedal Edema. absent: Tenderness - Neurological Exam Neurological Exam: Alert, Awake, Oriented x3 - Skin Skin Exam: Dry, Normal Color, Warm - Rash noted in intertrigenous/Panniculus- Keiko Assessment and Plan - Assessment and Plan (Free Text) Plan: Chest pain - r/o ACS Admit to tele -ALEXUS negative x 3; EKG: NSR with no acute ST elevations -ASA 81mg po daily -Crestor 10mg po daily -Echo (02/18): LV fxn normal. EF 60%. Mild tricupsid, pulmonic valve regurgitation (see full report) -HEART score of 3 [low 0.9-1.7% risk of adverse cardiac event. Risk of MACE ( Major Adverse Cardiac Events) is 0.9-1.7%] -Cardiology consult: Dr Sheppard - recommends stress test/ECHO as outpatient Left Upper Extremity Paresthesia Positional - flexion of UE R/O radiculopathy vs Vascular - C-spine XR (08/15/16): No significant findings. No foraminal stenosis (see full report) - f/u arterial doppler UE Morbid Obesity -BMI 50.9 -Nutrition/Ditching Machine Engineer consult -Heart healthy diet with moderate consistent carb -Recommend outpatient diet control and exercise Intertrigenous/Pannicular Rash (Yeast Infection) Keiko in skin folds for "10 months" Clotrimazole 1%, topically BID Perirectal pruritus -Topical ointment BID Hx of HTN Elevated since presentation -Diltiazem 60mg po bid -HCTZ increased 25mg po daily -Cozaar 100mg po daily -Lopressor 25mg po bid -Lovaza 1gm po bid -thyroid studies, lipid panel: WNL Hx of DM2 -HgbA1c: 12.4, uncontrolled; pt has not had meds for two months -RISS medium -Accucheck Continue KEYANA, BB, Statin Hx of lumbar spinal stenosis Pt reports -Lumbar x-ray (08/15/16): No acute fracture. Mild DDD worse at L4-5, L5-S1 (see full report) PPX -Pepcid 20mg po bid -Heparin 5000u sc q8 -SCDs -Heart healthy moderate consistent carb diet -PT/OT -Ditching Machine Engineer Plan discussed with Dr. Radha Alfred PGY1
[2016-08-16 08:44] LABS: BASO % 0.6 % (0.0-2.0); EOS # 0.2 K/uL (0.0-0.7); EOS % 2.8 % (0.0-4.0); HEMATOCRIT 41.5 % (34.0-47.0); LYMPH # 2.4 K/uL (1.0-4.3); LYMPH % 37.2 % (20.0-40.0); MEAN CORPUSCULAR HEMOGLOBIN 27.8 pg (27.0-31.0); MEAN CORPUSCULAR HGB CONC 32.3 g/dL (33.0-37.0); MEAN PLATELET VOLUME 9.6 fL (7.2-11.7); MONO # 0.6 K/uL (0.0-0.8); MONO % 9.3 % (0.0-10.0); RED CELL DISTRIBUTION WIDTH 14.4 % (11.5-14.5); WHITE BLOOD COUNT 6.5 K/uL (4.8-10.8)
[2016-08-16] MEDS: (Novolin N) Insulin Human Isophane (NPH) 100 u/ml 10 ml vial SC SCH ×2 (08:44→13:34)
[2016-08-16 09:00] LABS: CHLORIDE 98 mmol/L (98-107); SODIUM 135 mmol/L (132-148)
[2016-08-16 09:01] LABS: POTASSIUM 3.8 mmol/L (3.6-5.2)
[2016-08-16 09:02] LABS: GFR AFRICAN-AMERICAN > 60
[2016-08-16 09:03] LABS: ALKALINE PHOSPHATASE 100 U/L (38-126); ALT/SGPT 20 U/L (9-52); AST/SGOT 22 U/L (14-36); BILIRUBIN,TOTAL 0.8 mg/dL (0.2-1.3); BLOOD UREA NITROGEN 13 mg/dL (7-17); CARBON DIOXIDE 28 mmol/L (22-30); GLUCOSE,RANDOM 214 mg/dL (65-105); PHOSPHOROUS 3.7 mg/dL (2.5-4.5); TOTAL PROTEIN 6.9 g/dL (6.3-8.3)
[2016-08-16 09:04] LABS: CALCIUM 9.1 mg/dl (8.6-10.4); MAGNESIUM 1.5 mg/dL (1.6-2.3)
[2016-08-16] MEDS: diltiaZEM 60 mg ER Cap PO SCH (09:29)
[2016-08-16] MEDS: Omega-3-Acid Ethyl Esters 1 GM Cap PO SCH (09:29)
[2016-08-16] MEDS: Hemorrohoidal Ointment (2 oz) TOP SCH (12:03)
[2016-08-16] MEDS: Clotrimazole 1% Cream 15 GM TUBE TOP SCH (12:03)
[2016-08-16] MEDS: Magnesium Sulfate 1 gm in D5W 1 GM/100 ML BAG IVPB SCH (12:29)
--- NOTE | 2016-08-16 12:48 | CP.PCM.PN ---
Subjective - Date & Time of Evaluation Date of Evaluation: 08/16/16 Time of Evaluation: 13:00 - Subjective Subjective: No further chest pain, for stress test as outpatient. Objective - Vital Signs/Intake and Output Vital Signs (last 24 hours): Temp Pulse Resp BP Pulse Ox 98.2 F 69 20 142/78 95 08/16/16 08:00 08/16/16 08:00 08/16/16 08:00 08/16/16 09:29 08/16/16 08:00 Intake and Output: 08/16/16 08/16/16 06:59 18:59 Intake Total 300 Balance 300 - Medications Medications: Current Medications Acetaminophen (Tylenol 325mg Tab) 650 mg PO Q6 PRN PRN Reason: Headache Last Admin: 08/15/16 06:04 Dose: 650 mg Aspirin (Aspirin Chewable) 81 mg PO DAILY [facility] Last Admin: 08/16/16 09:29 Dose: 81 mg Clotrimazole (Lotrimin 1%) 0 gm TOP BID [facility] Last Admin: 08/16/16 12:03 Dose: 1 applic Diltiazem HCl (Cardizem Sr) 60 mg PO BID [facility] Last Admin: 08/16/16 09:29 Dose: 60 mg Famotidine (Pepcid) 20 mg PO BID [facility] Last Admin: 08/16/16 09:29 Dose: 20 mg Heparin Sodium (Porcine) (Heparin) 5,000 units SC Q8 [facility] Last Admin: 08/16/16 05:59 Dose: 5,000 units Hydralazine HCl (Apresoline) 10 mg IVP Q6H PRN PRN Reason: Systolic Blood Pressure Last Admin: 08/16/16 08:44 Dose: 10 mg Hydrochlorothiazide (Hydrodiuril) 25 mg PO Q24H [facility] Insulin Glargine (Lantus) 10 unit SC HS [facility] Last Admin: 08/15/16 21:31 Dose: 10 u Insulin Human NPH (Novolin N) 0 unit SC ACHS [facility] PRN Reason: Protocol Last Admin: 08/16/16 08:44 Dose: 6 unit Losartan Potassium (Cozaar) 100 mg PO DAILY [facility] Last Admin: 08/16/16 09:29 Dose: 100 mg Metoprolol Tartrate (Lopressor) 50 mg PO BID [facility] Multi-Ingredient Ointment (Prep-Hem) 0 ea TOP BID [facility] Last Admin: 08/16/16 12:03 Dose: 1 appl Thqgn-1-Nzrg Ethyl Esters (Lovaza) 1 gm PO BID [facility] Last Admin: 08/16/16 09:29 Dose: 1 gm Rosuvastatin Calcium (Crestor) 10 mg PO HS [facility] Last Admin: 08/15/16 21:30 Dose: 10 mg Sitagliptin Phosphate (Januvia) 50 mg PO DAILY [facility] Last Admin: 08/16/16 09:29 Dose: 50 mg - Labs Labs: 08/16/16 08:29 08/16/16 08:29 PT 12.6 SECONDS (9.7-12.2) H 08/14/16 22:10 INR 1.1 08/14/16 22:10 APTT 27 SECONDS (21-34) 08/15/16 07:44 - Constitutional Appears: Non-toxic - Head Exam Head Exam: ATRAUMATIC - Eye Exam Eye Exam: EOMI - ENT Exam ENT Exam: Mucous Membranes Moist - Neck Exam Neck Exam: absent: Lymphadenopathy, Thyromegaly - Respiratory Exam Respiratory Exam: Clear to Ausculation Bilateral. absent: Rales - Cardiovascular Exam Cardiovascular Exam: REGULAR RHYTHM, Murmur - GI/Abdominal Exam GI & Abdominal Exam: Normal Bowel Sounds. absent: Organomegaly - Rectal Exam Rectal Exam: Deferred - Extremities Exam Extremities Exam: Normal Capillary Refill. absent: Calf Tenderness - Neurological Exam Neurological Exam: Alert, Oriented x3 - Psychiatric Exam Psychiatric exam: Normal Mood - Skin Skin Exam: Dry Assessment and Plan (1) Chest pain Status: Acute (2) Diabetes mellitus Status: Chronic (3) Hypertension Status: Chronic
--- NOTE | 2016-08-16 14:04 | CARD ---
APPROVED REPORT EKG Measurement Heart [id number] [id number] <Conclusion> Normal sinus rhythm Possible Left atrial enlargement Borderline ECG
--- NOTE | 2016-08-16 14:06 | CARD ---
APPROVED REPORT EKG Measurement Heart [id number] 174P41 [id number] <Conclusion> Normal sinus rhythm Possible Left atrial enlargement Borderline ECG
--- NOTE | 2016-08-16 15:33 | CP.PCM.DIS ---
Provider - Provider Date of Admission: 08/14/16 22:20 Attending physician: Lei Ceja MD Hospital Course - Lab Results Lab Results: Most Recent Lab Values WBC 6.5 K/uL (4.8-10.8) 08/16/16 08: RBC 4.82 Mil/uL (3.80-5.20) 08/16/16 08: Hgb 13.4 g/dL (11.0-16.0) 08/16/16 08: Hct 41.5 % (34.0-47.0) 08/16/16 08: MCV 86.0 fL (81.0-99.0) 08/16/16 08: MCH 27.8 pg (27.0-31.0) 08/16/16 08: MCHC 32.3 g/dL (33.0-37.0) L 08/16/16 08: RDW 14.4 % (11.5-14.5) 08/16/16 08: Plt Count 234 K/uL (130-400) 08/16/16 08: MPV 9.6 fL (7.2-11.7) 08/16/16 08: Neut % (Auto) 50.1 % (50.0-75.0) 08/16/16 08: Lymph % (Auto) 37.2 % (20.0-40.0) 08/16/16 08: [place] % (Auto) 9.3 % (0.0-10.0) 08/16/16 08: Eos % (Auto) 2.8 % (0.0-4.0) 08/16/16 08: Baso % (Auto) 0.6 % (0.0-2.0) 08/16/16 08: Neut # 3.3 K/uL (1.8-7.0) 08/16/16 08: Lymph # 2.4 K/uL (1.0-4.3) 08/16/16 08: [place] # 0.6 K/uL (0.0-0.8) 08/16/16 08: Eos # 0.2 K/uL (0.0-0.7) 08/16/16 08: Baso # 0.0 K/uL (0.0-0.2) 08/16/16 08:29 PT 12.6 SECONDS (9.7-12.2) H 08/14/16 22:10 INR 1.1 08/14/16 22:10 APTT 27 SECONDS (21-34) 08/15/16 07:44 Sodium 135 mmol/L (132-148) 08/16/16 08:29 Potassium 3.8 mmol/L (3.6-5.2) 08/16/16 08:29 Chloride 98 mmol/L (98-107) 08/16/16 08:29 Carbon Dioxide 28 mmol/L (22-30) 08/16/16 08:29 Anion Gap 13 (10-20) 08/16/16 08:29 BUN 13 mg/dL (7-17) 08/16/16 08:29 Creatinine 0.8 MG/DL (0.7-1.2) 08/16/16 08:29 Est GFR ( Amer) > 60 08/16/16 08:29 Est GFR (Non-Af Amer) > 60 08/16/16 08:29 POC Glucose (mg/dL) 284 mg/dL (65-110) H 08/16/16 12:01 Random Glucose 214 mg/dL (65-105) H 08/16/16 08:29 Hemoglobin A1c 12.4 % (4.2-6.5) H 08/15/16 07:44 Calcium 9.1 mg/dl (8.6-10.4) 08/16/16 08:29 Phosphorus 3.7 mg/dL (2.5-4.5) 08/16/16 08:29 Magnesium 1.5 mg/dL (1.6-2.3) L 08/16/16 08:29 Total Bilirubin 0.8 mg/dL (0.2-1.3) 08/16/16 08:29 AST 22 U/L (14-36) 08/16/16 08:29 ALT 20 U/L (9-52) 08/16/16 08:29 Alkaline Phosphatase 100 U/L (38-126) 08/16/16 08:29 Total Creatine Kinase 57 U/L (30-135) 08/15/16 08:17 CK-MB (Mass) 0.56 ng/mL (0.0-3.38) 08/15/16 08:17 Troponin I < 0.0120 ng/mL (0.00-0.120) 08/14/16 21:15 Troponin I, Quant < 0.0120 ng/mL (0.00-0.120) 08/15/16 08:17 Total Protein 6.9 g/dL (6.3-8.3) 08/16/16 08:29 Albumin 3.4 g/dL (3.5-5.0) L 08/16/16 08:29 Globulin 3.4 gm/dL (2.2-3.9) 08/16/16 08:29 Albumin/Globulin Ratio 1.0 (1.0-2.1) 08/16/16 08:29 Triglycerides 104 mg/dL (0-149) D 08/15/16 07:44 Cholesterol 166 mg/dL (0-199) 08/15/16 07:44 LDL Cholesterol Direct 116 mg/dL (0-129) 08/15/16 07:44 HDL Cholesterol 33 mg/dL (30-70) 08/15/16 07:44 Free T4 1.52 ng/dL (0.78-2.19) 08/15/16 07:44 TSH 3rd Generation 2.91 mIU/L (0.46-4.68) 08/15/16 07:44 Urine Color Yellow (YELLOW) 08/14/16 21:53 Urine Clarity Hazy (Clear) 08/14/16 21:53 Urine pH 5.0 (5.0-8.0) 08/14/16 21:53 Ur Specific [place] 1.022 (1.003-1.030) 08/14/16 21:53 Urine Protein Negative mg/dL (NEGATIVE) 08/14/16 21:53 Urine Glucose (UA) 3+ mg/dL (Normal) H 08/14/16 21:53 Urine Ketones Negative mg/dL (NEGATIVE) 08/14/16 21:53 Urine Blood Negative (NEGATIVE) 08/14/16 21:53 Urine Nitrate Negative (NEGATIVE) 08/14/16 21:53 Urine Bilirubin Negative (NEGATIVE) 08/14/16 21:53 Urine Urobilinogen 4.0 mg/dL (0.2-1.0) H 08/14/16 21:53 Ur Leukocyte Esterase Neg Anshu/uL (Negative) 08/14/16 21:53 Urine WBC (Auto) 1 /hpf (0-5) 08/14/16 21:53 Urine RBC (Auto) 3 /hpf (0-3) 08/14/16 21:53 Ur Squamous Epith Cells 9 /hpf (0-5) H 08/14/16 21:53 Urine Bacteria Few (<OCC) H 08/14/16 21:53 Discharge Exam - Head Exam Head Exam: ATRAUMATIC Discharge Plan - Discharge Medications Prescriptions: Clotrimazole 1% Cream [Lotrimin 1%] 0 gm TOP BID #1 [id number] ER [Cardizem SR] 60 mg PO BID #60 c12 Insulin Glargine, Recombina [Lantus] 26 unit SC HS #10 unit Losartan/Hydrochlorothiazide [Losartan-Hctz 100-12.5 mg Tab] 1 tab PO DAILY #30 Metoprolol Tartrate [Lopressor] 50 mg PO BID #60 tab SITagliptin [Januvia] 50 mg PO DAILY #30 - Follow Up Plan Condition: STABLE Disposition: HOME/ ROUTINE Additional Instructions: Patient stable for discharge per Dr. Garcia. Patient may resume her home medications. She has been prescribed the following medications: Patient is make an appointment with her PMD, Dr. Hightower, within one week of discharge for follow-up of diabetes and high blood pressure. She should also make an appointment to follow up with specialist, Dr. Sheppard, Cardiology, to continue evaluation of her chest pain. Dr. Sheppard has made recommendation of outpatient stress test. She is advised to return to the emergency department if symptoms return or worsen. These instructions were given to the pt in [place]. Patient expressed verbal understanding of these instructions. Prescribed medications: Cardizem 60mg, one tab by mouth twice daily Losartan/HCTZ 100/25mg, one tab by mouth once daily Lopressor 50mg, one tab by mouth once daily Januvia 50mg, one tab by mouth daily Lipitor 20mg, one tab by mouth before bed Clotrimazole 1%, apply to skin topically twice daily Diabetes supplies: LAncets, Testing strips, Syringes Lantus 10 units at night Prescribed procedures: US arterial doppler Bilateral upper extremities
[2016-08-16 16:53] VITALS: BP 158/76; PULSE 74; RESP 21; TEMP 98.1
== END 2016-08-16 17:54 | disposition home or self-care (01) ==
LOC: C.ER 20:01 → C.5T 22:20
PROVIDERS: ADMIT Family Medicine; ATTEND Family Medicine
DX: R07.9 Chest pain, unspecified (principal); E11.9 Type 2 diabetes mellitus without complications; E78.5 Hyperlipidemia, unspecified; I10 Essential (primary) hypertension; L29.9 Pruritus, unspecified; Z87.891 Personal history of nicotine dependence
CPT/HCPCS: 36415; 71010; 71020; 72040; 72100; 80053; 80061; 81001; 82948; 83036; 83735; 84100; 84439; 84443; 84484; 85025; 85610; 85730; 93005; 96360; 96372; 96374; 97116; 97162; 97165; 97530; 99285; G0378; G8978; G8979; G8987; G8988; G8989; J0360; J1644; J1885; J3475; J7040

== ENCOUNTER 2016-10-23 11:45 | Observation (INO) | payer MEDICARE ==
[2016-10-23 11:45] VITALS: BMI 51.0
[2016-10-23] MEDS ORDERED: Sodium Chloride 0.9% 500 ML IV ONE ×2 (12:31→13:35)
[2016-10-23] MEDS ORDERED: Vancomycin 1 gm/NS 200 ml 1 GM/200 ML BAG IVPB STA (12:32)
[2016-10-23] MEDS ORDERED: Vancomycin 1 GM 1 GM/250 ML BAG IVPB ONE (12:52)
[2016-10-23] MEDS ORDERED: Sodium Chloride 0.9% 1,000 ML ONE ×2 (12:52→12:54)
--- NOTE | 2016-10-23 12:57 | C.PDOC ---
History Of Present Illness 66 yr old female with PMHx of diabetes and HTN presents to the ER with complaints of increasing swelling to her nose for the past 5 days. Patient states the swelling has worsened. Patient reports she has not taken her diabetes or HTN medicine in 1 month. Reports of chills. Patient denies fever, vision changes, mouth swelling, throat swelling, chest pain, SOB, nausea, vomiting, headache or dizziness. Time Seen by Provider: 10/23/16 12:15 Chief Complaint (Nursing): ENT Problem History Per: Patient History/Exam Limitations: None Onset/Duration Of Symptoms: Days (5) Current Symptoms Are (Timing): Still Present Past Medical History Reviewed: Historical Data, Nursing Documentation, Vital Signs Vital Signs: Last Vital Signs Temp 98.8 F 10/23/16 11:56 Pulse 95 H 10/23/16 13:30 Resp 20 10/23/16 13:30 BP 174/90 H 10/23/16 13:30 Pulse Ox 96 10/23/16 14:38 - Medical History PMH: Arthritis, CAD, Depression, Diabetes, HTN Family History: States: No Known Family Hx - Social History Hx Tobacco Use: No Hx Alcohol Use: Yes (Occasional) Hx Substance Use: No - Immunization History Hx Tetanus Toxoid Vaccination: No Hx Influenza Vaccination: No Hx Pneumococcal Vaccination: No Review Of Systems Except As Marked, All Systems Reviewed And Found Negative. Constitutional: Positive for: Chills. Negative for: Fever Eyes: Negative for: Pain (no pain with eye movement), Vision Change, Eyelid Inflammation, Redness ENT: Positive for: Other ((+) Swelling to nose.). Negative for: Mouth Swelling , Throat Pain, Throat Swelling Cardiovascular: Negative for: Chest Pain, Palpitations, Orthopnea, Light Headedness Respiratory: Negative for: Cough, Shortness of Breath, SOB with Excertion Gastrointestinal: Negative for: Nausea, Vomiting Genitourinary: Negative for: Dysuria Musculoskeletal: Negative for: Neck Pain Neurological: Negative for: Weakness, Numbness, Seizures, Altered Mental Status , Headache, Dizziness Physical Exam - Physical Exam Appears: Well, Non-toxic, No Acute Distress Skin: Warm, Dry, No Rash Head: Atraumatic, Normacephalic Eye(s): bilateral: Normal Inspection, PERRL, EOMI, Other (Extraocular muscles intact. No pain with eye movements. ) Ear(s): Bilateral: Normal Nose: Other ((+) Erythema, redness and warmth to the entire nose.) Oral Mucosa: Moist Throat: Normal, No Erythema, No Exudate, No Drooling Neck: Normal, Normal ROM, Supple Chest: Symmetrical, No Tenderness Cardiovascular: Rhythm Regular, No Murmur Respiratory: Normal Breath Sounds, No Rales, No Rhonchi, No Wheezing Gastrointestinal/Abdominal: Soft, No Tenderness, No Mass, No Distention Back: Normal Inspection, No CVA Tenderness Extremity: Normal ROM, No Swelling Neurological/Psych: Oriented x3, Normal Speech, Normal Motor ED Course And Treatment - Laboratory Results Result Diagrams: 10/23/16 13:25 10/23/16 13:25 O2 Sat by Pulse Oximetry: 96 (RA ) Pulse Ox Interpretation: Normal Medical Decision Making Medical Decision Making: PLAN: * VBG * CBC * CMP * Losartan PO * Hydrodiuril PO * Toradol IVP * Vancomycin IVPB * Sodium Chloride IV 1:04PM EKG shows sinus tachycardia at 106bpm with LVH. No acute ST changes 1:52PM Tachycardia improving after IVF. Labs significant for elevated wbc. Patient has sirs criteria but lactate wnl. Blood cultures sent and antibiotics infusing. Patient is hyperglycemic (normal gap and ph) with facial cellulitis. Insulin ordered. Will transfer to observation under Dr. Quinn. 2:01PM Dr. Quinn accepted patient under his service. Disposition - Disposition Disposition: HOSPITALIZED Disposition Time: 14:01 Condition: FAIR - Clinical Impression Clinical Impression: Facial cellulitis, Tachycardia, Hyperglycemia - Scribe Statement The provider has reviewed the documentation as recorded by the Tea Thompson Provider Attestation: All medical record entries made by the Tea were at my direction and personally dictated by me. I have reviewed the chart and agree that the record accurately reflects my personal performance of the history, physical exam, medical decision making, and the department course for this patient. I have also personally directed, reviewed, and agree with the discharge instructions and disposition.
[2016-10-23 13:28] LABS: BASO # 0.1 K/uL (0.0-0.2); BASO % 1.3 % (0.0-2.0); EOS # 0.1 K/uL (0.0-0.7); EOS % 0.9 % (0.0-4.0); HEMATOCRIT 42.9 % (34.0-47.0); LYMPH # 1.6 K/uL (1.0-4.3); LYMPH % 14.8 % (20.0-40.0); MEAN CELL VOLUME 87.9 fL (81.0-99.0); MEAN CORPUSCULAR HEMOGLOBIN 28.3 pg (27.0-31.0); MEAN CORPUSCULAR HGB CONC 32.2 g/dL (33.0-37.0); MEAN PLATELET VOLUME 10.2 fL (7.2-11.7); MONO # 1.1 K/uL (0.0-0.8); MONO % 9.8 % (0.0-10.0); RED CELL DISTRIBUTION WIDTH 14.9 % (11.5-14.5)
[2016-10-23 13:28] LABS: VENOUS BLOOD GAS PCO2 38 mmHg (40-60); VENOUS BLOOD PH 7.43 (7.32-7.43)
[2016-10-23 13:35] LABS: CHLORIDE 100 mmol/L (98-107)
[2016-10-23 13:36] LABS: POTASSIUM 3.6 mmol/L (3.6-5.2); SODIUM 136 mmol/L (132-148)
[2016-10-23 13:38] LABS: ALB/GLOB RATIO 0.9 (1.0-2.1); AST/SGOT 17 U/L (14-36); BILIRUBIN,TOTAL 0.9 mg/dL (0.2-1.3); BLOOD UREA NITROGEN 7 mg/dL (7-17); CARBON DIOXIDE 24 mmol/L (22-30); GFR AFRICAN-AMERICAN > 60; TOTAL PROTEIN 7.4 g/dL (6.3-8.3)
[2016-10-23 13:39] LABS: ALKALINE PHOSPHATASE 120 U/L (38-126); ALT/SGPT 28 U/L (9-52); CALCIUM 9.4 mg/dl (8.6-10.4)
[2016-10-23 13:50] LABS: GLUCOSE,RANDOM 439 mg/dL (65-105)
[2016-10-23] MEDS ORDERED: (Novolin R) Insulin Human Regular 100 units/ml vial IV STA (13:58)
[2016-10-23] MEDS ORDERED: (Novolin R) Insulin Human Regular 100 units/ml vial ONE ×2 (14:39→16:08)
[2016-10-23] MEDS: Clindamycin 600mg/50ml NS 600 MG/50 ML BAG IVPB SCH ×2 (16:02→21:56)
[2016-10-23] MEDS: Enoxaparin 40 mg Syringe SC SCH (16:04)
[2016-10-23] MEDS: (Novolin R) Insulin Human Regular 100 units/ml vial SC SCH ×2 (16:18→21:54)
[2016-10-23] MEDS: diltiaZEM 60 mg ER Cap PO SCH (16:56)
[2016-10-23] MEDS: (Lantus) Insulin Glargine, Recombinant SC SCH (21:53)
[2016-10-24] MEDS: Clindamycin 600mg/50ml NS 600 MG/50 ML BAG IVPB SCH ×4 (02:18→20:37)
[2016-10-24] MEDS: (Novolin R) Insulin Human Regular 100 units/ml vial SC SCH ×4 (08:21→21:14)
[2016-10-24] MEDS: Enoxaparin 40 mg Syringe SC SCH (10:42)
[2016-10-24] MEDS: diltiaZEM 60 mg ER Cap PO SCH ×2 (10:44→17:11)
[2016-10-24] MEDS: (Lantus) Insulin Glargine, Recombinant SC SCH (21:14)
[2016-10-25] MEDS: Clindamycin 600mg/50ml NS 600 MG/50 ML BAG IVPB SCH ×4 (02:36→21:32)
[2016-10-25] MEDS: diltiaZEM 60 mg ER Cap PO SCH ×3 (05:59→21:32)
--- NOTE | 2016-10-25 07:14 | HP ---
CHIEF COMPLAINT: Pain and swelling of her nose for 5 days. HISTORY OF PRESENT ILLNESS: This is a 66-year-old female with history of type 2 diabetes and hypertension, who is compliant with her diet, medication and followup. Her blood sugars have not been under control. Five days ago, she started having pain, redness and swelling at the tip of the nose, it got worse and it involved the entire nose. Along with that, she is having fever, chills, rigors, generalized weakness, tiredness, polyuria, polydipsia and polyphagia. She denies any dysuria. She denies any hematuria or pyuria. She has chills and rigors. She denies any visual changes. She denies any throat or facial swelling. She denies any chest pain, palpitations, weakness or dizziness. She denies any history of abdominal pain, nausea, vomiting or diarrhea. She denies any joint pain or hip pain. She denies any sneezing, itchy eyes or itchy nose. REVIEW OF SYSTEMS: As above. PAST MEDICAL HISTORY: Osteoarthritis, diabetes and hypertension. SOCIAL HISTORY: Nonsmoker, social EtOH use. No substance abuse. CURRENT MEDICATIONS: Diltiazem, Januvia, metoprolol, losartan, Lantus, Pepcid, Lotrisone and aspirin. PHYSICAL EXAMINATION: GENERAL: An elderly female, in mild distress. VITAL SIGNS: Blood pressure 174/90, pulse 95, respiratory rate 20 and temperature 98.8 SKIN: The patient has redness, warmth and tender at the tip of the nose and there is a discharge. HEENT: Atraumatic and normocephalic. Negative pallor. Negative jaundice. Extraocular movements are intact. NECK: Supple. There is no JVD, no lymph node, no thyromegaly, no carotid bruit. CHEST: Chest wall bilateral symmetrical expansion noted. LUNGS: Bilaterally clear. No rales or rhonchi. Severe PMI in the fifth intercostal space. CARDIOVASCULAR: S1, S2 regular. No heave. No thrill. ABDOMEN: Soft, nontender. Bowel sounds are positive. EXTREMITIES: No clubbing, cyanosis or edema. CENTRAL NERVOUS SYSTEM: Awake, alert, and oriented x3. Cranial nerves II through XII normal. Power is 5/5. Plantars are downgoing. ASSESSMENT: 1. Cellulitis of the nose. 2. Uncontrolled diabetes. 3. Hypertension. PLAN: Admit. Accu-Chek sliding scale, Lantus, metformin, Januvia and clindamycin. The patient did receive a dose of vancomycin in the ER. If the patient's blood pressure is poorly controlled, we will adjust her medication and the patient will be followed up. Geo Quinn MD
[2016-10-25] MEDS: (Novolin R) Insulin Human Regular 100 units/ml vial SC SCH ×4 (08:21→21:34)
[2016-10-25] MEDS: Enoxaparin 40 mg Syringe SC SCH (09:23)
[2016-10-25] MEDS: Sodium Chloride Nasal 0.65% Soln (30ml) NAS SCH ×3 (13:46→21:31)
[2016-10-25] MEDS: (Lantus) Insulin Glargine, Recombinant SC SCH (21:33)
[2016-10-26] MEDS: Clindamycin 600mg/50ml NS 600 MG/50 ML BAG IVPB SCH ×3 (03:52→14:13)
[2016-10-26] MEDS: diltiaZEM 60 mg ER Cap PO SCH ×2 (06:25→14:14)
[2016-10-26] MEDS: (Novolin R) Insulin Human Regular 100 units/ml vial SC SCH ×3 (08:29→17:35)
[2016-10-26] MEDS: Enoxaparin 40 mg Syringe SC SCH (10:12)
[2016-10-26] MEDS: Sodium Chloride Nasal 0.65% Soln (30ml) NAS SCH ×2 (10:13→14:14)
--- NOTE | 2016-10-26 13:53 | CP.PCM.PN ---
Subjective - Date & Time of Evaluation Date of Evaluation: 10/26/16 Time of Evaluation: 11:00 - Subjective Subjective: pT SEEN TODAY, NOSE SWELLING IMPROVED, REDNESS STILL PRESENT , DENIES ANY OTHER COMPLAINTS A FEBRILE Objective - Vital Signs/Intake and Output Vital Signs (last 24 hours): Temp Pulse Resp BP Pulse Ox 98.3 F 66 20 153/86 H 96 10/26/16 07:41 10/26/16 07:41 10/26/16 07:41 10/26/16 07:41 10/26/16 07:41 Intake and Output: 10/26/16 10/26/16 06:59 18:59 Intake Total 300 Balance 300 - Medications Medications: Current Medications Acetaminophen (Tylenol 325mg Tab) 650 mg PO Q6 PRN PRN Reason: Headache Last Admin: 10/24/16 20:41 Dose: 650 mg Aspirin (Ecotrin) 81 mg PO DAILY [facility] Last Admin: 10/26/16 10:12 Dose: 81 mg Diltiazem HCl (Cardizem Sr) 60 mg PO Q8 [facility] Last Admin: 10/26/16 06:25 Dose: 60 mg Enoxaparin Sodium (Lovenox) 40 mg SC DAILY [facility] Last Admin: 10/26/16 10:12 Dose: 40 mg Famotidine (Pepcid) 40 mg PO DAILY [facility] Last Admin: 10/26/16 10:12 Dose: 40 mg Hydrochlorothiazide (Microzide) 12.5 mg PO DAILY [facility] Last Admin: 10/26/16 10:12 Dose: 12.5 mg Clindamycin Phosphate (Cleocin In Normal Saline Addvantage) 600 mg in 50 mls @ 100 mls/hr IVPB Q6H [facility] Last Admin: 10/26/16 10:11 Dose: 100 mls/hr Insulin Glargine (Lantus) 26 unit SC HS [facility] Last Admin: 10/25/16 21:33 Dose: 26 unit Insulin Human Regular (Novolin R) 0 unit SC ACHS EVE PRN Reason: Protocol Last Admin: 10/26/16 12:29 Dose: 3 unit Losartan Potassium (Cozaar) 100 mg PO DAILY [facility] Last Admin: 10/26/16 10:12 Dose: 100 mg Metformin HCl (Glucophage) 850 mg PO BID [facility] Last Admin: 10/26/16 10:11 Dose: 850 mg Metoprolol Tartrate (Lopressor) 50 mg PO BID [facility] Last Admin: 10/26/16 10:12 Dose: 50 mg Sitagliptin Phosphate (Januvia) 50 mg PO DAILY [facility] Last Admin: 10/26/16 10:11 Dose: 50 mg Sodium Chloride ([place] Baby Saline 30 Ml) 0 ml CUCA QID [facility] Last Admin: 10/26/16 10:13 Dose: 2 drop - Constitutional Appears: Well, No Acute Distress - ENT Exam ENT Exam: Mucous Membranes Moist (REDNESS STILL PRESENT ON NOSE ) - Respiratory Exam Respiratory Exam: Clear to Ausculation Bilateral, NORMAL BREATHING PATTERN Assessment and Plan - Assessment and Plan (Free Text) Assessment: 66 YR OLD FEMALE ADMITTED FOR FACIAL CELLULITIS/NOSE STARTED ON CLINDAMYCIN AN D CLINICALLY IMPROVED D/W DR. VERGARA, STABLE FOR DISCHARGE HOME TODAY WITH CLINDAMYCIN DISCHARGE PLAN DISCUSSED WITH PATIENT WHO UNDERSTANDS AND AGREES WITH PLAN RX E PRESCRIBED TO PT PHARMACY AT [facility]
--- NOTE | 2016-10-26 14:25 | CARD ---
APPROVED REPORT EKG Measurement Heart [id number] <Conclusion> Sinus tachycardia Possible Left atrial enlargement Left ventricular hypertrophy Abnormal ECG
[2016-10-26 16:51] VITALS: BP 171/90; PULSE 62; RESP 21; TEMP 98.6; O2SAT 97
--- NOTE | 2016-10-26 22:31 | CP.PCM.DIS ---
Provider - Provider Date of Admission: 10/23/16 14:12 Attending physician: Geo Quinn MD Diagnosis - Discharge Diagnosis (1) Facial cellulitis Status: Acute Priority: High (2) Hyperglycemia Status: Chronic Priority: High Hospital Course - Lab Results Lab Results: Most Recent Lab Values WBC 11.0 K/uL (4.8-10.8) H D 10/23/16 13:25 RBC 4.88 Mil/uL (3.80-5.20) 10/23/16 13:25 Hgb 13.8 g/dL (11.0-16.0) 10/23/16 13:25 Hct 42.9 % (34.0-47.0) 10/23/16 13:25 MCV 87.9 fL (81.0-99.0) 10/23/16 13:25 MCH 28.3 pg (27.0-31.0) 10/23/16 13:25 MCHC 32.2 g/dL (33.0-37.0) L 10/23/16 13:25 RDW 14.9 % (11.5-14.5) H 10/23/16 13:25 Plt Count 199 K/uL (130-400) 10/23/16 13:25 MPV 10.2 fL (7.2-11.7) 10/23/16 13:25 Neut % (Auto) 73.2 % (50.0-75.0) 10/23/16 13:25 Lymph % (Auto) 14.8 % (20.0-40.0) L 10/23/16 13:25 Garden % (Auto) 9.8 % (0.0-10.0) 10/23/16 13:25 Eos % (Auto) 0.9 % (0.0-4.0) 10/23/16 13:25 Baso % (Auto) 1.3 % (0.0-2.0) 10/23/16 13:25 Neut # 8.0 K/uL (1.8-7.0) H 10/23/16 13:25 Lymph # 1.6 K/uL (1.0-4.3) 10/23/16 13:25 Garden # 1.1 K/uL (0.0-0.8) H 10/23/16 13:25 Eos # 0.1 K/uL (0.0-0.7) 10/23/16 13:25 Baso # 0.1 K/uL (0.0-0.2) 10/23/16 13:25 ESR 67 mm/hr (0-20) H 10/23/16 13:25 pO2 56 mm/Hg (30-55) H 10/23/16 13:20 VBG pH 7.43 (7.32-7.43) 10/23/16 13:20 VBG pCO2 38 mmHg (40-60) L 10/23/16 13:20 VBG HCO3 25.5 mmol/L 10/23/16 13:20 VBG Total CO2 26.4 mmol/L (22-28) 10/23/16 13:20 VBG O2 Sat (Calc) 92.9 % (40-65) H 10/23/16 13:20 VBG Base Excess 1.0 mmol/L (0.0-2.0) 10/23/16 13:20 VBG Potassium 3.6 mmol/L (3.6-5.2) 10/23/16 13:20 Sodium 138.0 mmol/l (132-148) 10/23/16 13:20 Chloride 102.0 mmol/L (98-107) 10/23/16 13:20 Glucose 458 mg/dl (65-105) H* 10/23/16 13:20 Lactate 1.4 mmol/L (0.7-2.1) 10/23/16 13:20 Crit Value Called To Er nurse yamila 10/23/16 13:20 Crit Value Called By Moises wade 10/23/16 13:20 Crit Value Read Back Y 10/23/16 13:20 Blood Gas Notified Time 1328 10/23/16 13:20 Sodium 136 mmol/L (132-148) 10/23/16 13:25 Potassium 3.6 mmol/L (3.6-5.2) 10/23/16 13:25 Chloride 100 mmol/L (98-107) 10/23/16 13:25 Carbon Dioxide 24 mmol/L (22-30) 10/23/16 13:25 Anion Gap 16 (10-20) 10/23/16 13:25 BUN 7 mg/dL (7-17) 10/23/16 13:25 Creatinine 0.6 MG/DL (0.7-1.2) L 10/23/16 13:25 Est GFR ( Amer) > 60 10/23/16 13:25 Est GFR (Non-Af Amer) > 60 10/23/16 13:25 POC Glucose (mg/dL) 231 mg/dL (65-110) H 10/26/16 15:55 Random Glucose 439 mg/dL (65-105) H* D 10/23/16 13:25 Calcium 9.4 mg/dl (8.6-10.4) 10/23/16 13:25 Total Bilirubin 0.9 mg/dL (0.2-1.3) 10/23/16 13:25 AST 17 U/L (14-36) 10/23/16 13:25 ALT 28 U/L (9-52) 10/23/16 13:25 Alkaline Phosphatase 120 U/L (38-126) 10/23/16 13:25 Total Protein 7.4 g/dL (6.3-8.3) 10/23/16 13:25 Albumin 3.5 g/dL (3.5-5.0) 10/23/16 13:25 Globulin 3.8 gm/dL (2.2-3.9) 10/23/16 13:25 Albumin/Globulin Ratio 0.9 (1.0-2.1) L 10/23/16 13:25 Venous Blood Potassium 3.6 mmol/L (3.6-5.2) 10/23/16 13:20 - Hospital Course Hospital Course: 66 y/o ADMITTED WITH SWELLING OF FACE PAIN, FEVER, HIGH BLOOD SUGAR , NO NAUSEA , NO VOMITING Discharge Exam - Head Exam Head Exam: ATRAUMATIC, NORMAL INSPECTION, NORMOCEPHALIC - ENT Exam ENT Exam: Mucous Membranes Moist, Normal Exam, Normal Oropharynx, TM's Normal Bilaterally - Neck Exam Neck exam: Normal Inspection - Respiratory Exam Respiratory Exam: Clear to PA & Lateral, NORMAL BREATHING PATTERN - Cardiovascular Exam Cardiovascular Exam: REGULAR RHYTHM, +S1, +S2 - GI/Abdominal Exam GI & Abdominal Exam: Normal Bowel Sounds - Extremities Exam Extremities exam: normal capillary refill, pedal pulses present - Neurological Exam Neurological exam: Alert, CN II-XII Intact, Normal Gait, Oriented x3, Reflexes Normal - Psychiatric Exam Psychiatric exam: Normal Affect, Normal Mood - Skin Skin Exam: Intact Discharge Plan - Discharge Medications Prescriptions: diltiaZEM ER [Cardizem SR] 60 mg PO Q8 #90 c12 Clindamycin [Cleocin] 300 mg PO Q6 #28 cap Losartan [Cozaar] 100 mg PO DAILY #30 tab Aspirin [Ecotrin] 81 mg PO DAILY #30 metFORMIN [glucOPHAGE] 850 mg PO BID #60 tab SITagliptin [Januvia] 50 mg PO DAILY #30 tab Insulin Glargine, Recombina [Lantus] 28 unit SC HS #1 unit Metoprolol Tartrate [Lopressor] 50 mg PO BID #60 tab hydroCHLOROthiazide [Microzide] 12.5 mg PO DAILY #30 cap Famotidine [Pepcid] 40 mg PO DAILY #30 tab - Follow Up Plan Condition: FAIR Disposition: HOME/ ROUTINE Instructions: Clindamycin (By mouth), Metoprolol (By mouth), Diltiazem (By mouth), Famotidine (By mouth), Hydrochlorothiazide (By mouth), Aspirin (By mouth ), Losartan (By mouth), Metformin (By mouth), Sitagliptin (By mouth), Cellulitis (DC), Diabetic Hyperglycemia (DC) Additional Instructions: f/u with PMD/dr. Quinn in 5 days Continue medication as per Med. Rec. PLEASE SERVICE DESK LEAD MEDICATION FROM [facility] [place] Referrals: Geo Quinn MD [Staff Provider] -
--- NOTE | 2016-10-26 22:33 | CP.PCM.PN ---
Subjective - Date & Time of Evaluation Date of Evaluation: 10/25/16 - Subjective Subjective: PAIN IN FACE, REDNESS OF FACE, NO FEVER, NO SOB, NO COUGH, BP IS DOWN, NO CHEST PAIN Objective - Vital Signs/Intake and Output Vital Signs (last 24 hours): Temp Pulse Resp BP Pulse Ox 98.6 F 62 21 171/90 H 97 10/26/16 15:00 10/26/16 15:00 10/26/16 15:00 10/26/16 15:00 10/26/16 15:00 Intake and Output: 10/26/16 10/27/16 18:59 06:59 Intake Total 460 Balance 460 - Constitutional Appears: Non-toxic, No Acute Distress - Head Exam Head Exam: ATRAUMATIC, NORMAL INSPECTION, NORMOCEPHALIC - Eye Exam Eye Exam: EOMI, Normal appearance, PERRL Pupil Exam: NORMAL ACCOMODATION - ENT Exam ENT Exam: Mucous Membranes Moist, Normal Exam - Neck Exam Neck Exam: Normal Inspection - Respiratory Exam Respiratory Exam: Clear to Ausculation Bilateral, NORMAL BREATHING PATTERN - Cardiovascular Exam Cardiovascular Exam: REGULAR RHYTHM, +S1, +S2 - GI/Abdominal Exam GI & Abdominal Exam: Normal Bowel Sounds - Extremities Exam Extremities Exam: Full ROM, Normal Capillary Refill - Neurological Exam Neurological Exam: Alert, Awake, CN II-XII Intact, Normal Gait, Oriented x3 Neuro motor strength exam: Left Upper Extremity: 5, Right Upper Extremity: 5, Left Lower Extremity: 5, Right Lower Extremity: 5 - Psychiatric Exam Psychiatric exam: Normal Mood - Skin Skin Exam: Intact Assessment and Plan (1) Facial cellulitis Status: Acute (2) Hyperglycemia Status: Chronic (3) Hypertension Status: Chronic
== END 2016-10-26 19:03 | disposition home or self-care (01) ==
LOC: C.ER 11:45 → C.9E 14:12 → C.3T 19:04
PROVIDERS: ADMIT Internal Medicine; ATTEND Internal Medicine
DX: E11.65 Type 2 diabetes mellitus with hyperglycemia (principal); I10 Essential (primary) hypertension; L03.211 Cellulitis of face
CPT/HCPCS: 80053; 82803; 82948; 85025; 85651; 87040; 93005; 96365; 96372; 96374; 99285; G0378; J1650; J1885; J3370; J7040